=== PATIENT | female | born 1965 | race Hispanic/Latino ===

== ENCOUNTER 2020-06-28 16:00 | Outpatient (RCR) | payer OTHER | END 2020-06-29 | LOC: PT 16:00 | PROVIDERS: ATTEND Specialist | DX: M75.41 Impingement syndrome of right shoulder (principal) ==

== ENCOUNTER 2020-07-05 16:00 | Outpatient (RCR) | payer OTHER | END 2020-07-30 | LOC: PT 16:00 | PROVIDERS: ATTEND Specialist | DX: M75.41 Impingement syndrome of right shoulder (principal) | CPT/HCPCS: 97139 ==